=== PATIENT | male | born 1975 | race Caucasian/White ===

== ENCOUNTER 2019-12-30 22:37 | Inpatient (IN) | payer OTHER ==
[2019-12-30] MEDS ORDERED: Clindamycin/D5W 900 mg/50 ml Premix Bag ONE (23:50)
[2019-12-30] MEDS ORDERED: Ketorolac Tromethamine 30 MG/ML VIAL ONE (23:50)
[2019-12-31] MEDS ORDERED: Morphine 4 MG/ML VIAL ONE (00:38)
[2019-12-31] MEDS ORDERED: Ondansetron PF 4 MG/2 ML Vial IVP PRN ×2 (01:37→01:59)
[2019-12-31] MEDS ORDERED: Ondansetron ODT 4 MG TAB SL PRN (01:37)
[2019-12-31] MEDS ORDERED: Sodium Chloride 0.9% 1,000 ML IV SCH (01:45)
[2019-12-31 01:55] VITALS: BMI 26.9
[2019-12-31] MEDS ORDERED: Ondansetron ODT 4 MG TAB PO PRN (01:59)
[2019-12-31] MEDS: Morphine 4 MG/ML VIAL SLOW IVP PRN ×6 (02:24→22:22)
[2019-12-31] MEDS: Sodium Chloride 0.9% 1,000 ML IV SCH ×4 (02:27→22:24)
[2019-12-31 04:10] LABS: #Eosinphils 0.2 thou/uL (0.0-0.7); #Monocytes 0.8 thou/uL (0.11-0.59); #Neutrophils 5.9 thou/uL (1.40-6.50); %Basophils 0.2 % (0.0-1.0); %Eosinophils 1.9 % (0.0-10.0); %Lymphocytes 22.8 % (21.0-51.0); %Monocytes 8.7 % (0.0-10.0); %Neutrophils 66.4 % (42.0-75.0); Hemoglobin 15.2 g/dL (14.0-18.0); Mean Corpuscular HGB CONC 32.2 g/dL (32.0-36.0); Mean Corpuscular Volume 96.4 fL (78.0-98.0); Mean Platelet Volume 7.6 fL (7.4-10.4); Platelet Count 329 thou/uL (130-400); RBC Distribution Width 12.2 % (11.5-14.5)
[2019-12-31 04:28] LABS: Anion Gap 14 mmol/L (10-20); BUN (Urea Nitrogen) 16 mg/dL (8.9-20.6); Calc. Creatinine Clearance 108 mL/min (70-130); Carbon Dioxide 25 mmol/L (22-29); Chloride 108 mmol/L (98-107); Estimated GFR-MDRD 86; Glucose 99 mg/dL (70-105); Potassium 4.5 mmol/L (3.5-5.1); Sodium 142 mmol/L (136-145)
--- NOTE | 2019-12-31 07:43 | HP ---
TIME OF ASSESSMENT: 0100 hours. CHIEF COMPLAINT: Left jaw pain and swelling x3 weeks. HISTORY OF PRESENT ILLNESS: Mr. Reddy is a 44-year-old gentleman, who was brought to the ED in [place] due to complaints of increasing left lower jaw swelling and pain. The patient has a history of a jaw fracture in the past for which he had a titanium plate placed in April 2019. He apparently had a second surgery in July 2019. The patient states he has been doing well with no real limited range of motion in his jaw; however, 3 weeks ago, he states he yawned and felt a snap in the left lower jaw. Since then, he has had progressively worsening swelling and redness to left side of his jaw. He has also noted one open wound with drainage in the last few days. He has not developed any fevers or chills, but has felt generally unwell. Denies any difficulty swallowing. No difficulty with his breathing. Denies any chest pain. He otherwise feels well and is without any complaints. In the Emergency Department in [place], he underwent CT of facial bone imaging which showed extensive inflammatory changes involving the skin and subcutaneous fat in the left perimandibular facial region with inflammatory change involving the adjacent masseter muscle and parotid gland as well as mastication muscles. This was felt to be consistent with extensive infectious process. Intramuscular abscess felt to be a possibility. Surgical consultation has been recommended and the patient therefore transferred here as no beds were available at [facility]. MR imaging or bone scan suggested to exclude mandibular osteomyelitis. The patient has been started on IV antibiotics with clindamycin. He had laboratory studies done, which were notable for white count of 11.5, hemoglobin 15.7, platelets 319, granulocytes 78%. Sodium 140, potassium 4.2, BUN 14, creatinine 0.8. On arrival here, his vital signs are normal and he has got a low-grade temperature of 99. PAST MEDICAL HISTORY: General seizure disorder. PAST SURGICAL HISTORY: 1. Left jaw surgery in April 2019. 2. Right hand surgery. 3. Left forearm surgery. SOCIAL HISTORY: The patient is an inmate. FAMILY HISTORY: Noncontributory. ALLERGIES: No known drug allergies. CURRENT MEDICATIONS: Phenytoin 300 mg PO daily. PHYSICAL EXAMINATION: GENERAL: The patient appears well developed, well nourished, is in no acute distress. VITAL SIGNS: Temperature 99.1, pulse 78, blood pressure 118/72, respirations 18 , O2 saturation 96% on room air. HEENT: The patient with notable swelling to the left side of his lower face. Pupils are equal, round, and reactive to light. Sclerae icterus. Oropharynx clear, but with limited range of motion, pain in the left lower jaw. Left cheek area notable for small wound with dry blood and no active bleeding or drainage. This area is bulging, firm and tender to light palpation. Some slight tenderness with palpation of the left neck. The patient states it feels tight. No erythema extending down to the left side of his neck. LUNGS: Clear to auscultation bilaterally without wheezes, rales, or rhonchi. CARDIAC: Regular rate and rhythm without audible murmurs, rubs, or gallops. ABDOMEN: Soft, nontender, nondistended. Normoactive bowel sounds present. No guarding or rigidity. No renal angle tenderness. EXTREMITIES: No lower leg swelling or edema. Peripheral pulses are strong and equal bilaterally. SKIN: Warm and dry. INVESTIGATIONS: As mentioned above in HPI. IMPRESSION AND PLAN: Mr. Reddy is a 44-year-old gentleman, who was brought to [place] ED from detention due to increasing swelling and pain involving the left side of his jaw. He has had surgery in the past due to jaw fracture with a titanium plate placed. The patient is asking if he could have the titanium plate removed. I have explained this will be up to the oral surgeon. The patient did not have initial surgery done here. Consult has been placed to Dr. Priest. We will continue IV antibiotics and resume home medications once verified. He is on Dilantin only , which he has been taking consistently. We will check a Dilantin level. We will continue to monitor the patient overnight. GI prophylaxis: Famotidine. Code status is full. Unable to determine surrogate decision maker at this present time. Case discussed with Dr. Stewart, who agrees with plan of care as described above. Job ID: [id number] [facility]
[2019-12-31] MEDS ORDERED: Clindamycin/D5W 900 MG in Premix Bag 1 BAG IVPB SCH ×2 (08:00→22:00)
[2019-12-31] MEDS: Famotidine/PF 20 mg/2ml Vial SLOW IVP SCH ×2 (08:24→20:27)
--- NOTE | 2019-12-31 14:34 | PDOC.HOSPP ---
- Subjective Encounter Date: 12/31/19 Encounter Time: 11:40 Subjective: pt up in bed is hungry and wants to eat. He also has pain to his left jaw and left ear. - Objective Vital Signs & Weight: Vital Signs (12 hours) Temp Pulse Resp BP Pulse Ox 12/31/19 10:46 98.7 F 82 16 106/72 94 L 12/31/19 08:30 97 12/31/19 07:21 98.3 F 72 16 111/75 97 12/31/19 03:54 97.6 F 70 18 103/65 97 12/31/19 02:36 96 Weight Weight 172 lb I&O: 12/30/19 12/31/19 01/01/20 06:59 06:59 06:59 Intake Total 500 Output Total 650 Balance -150 Result Diagrams: 12/31/19 03:55 12/31/19 03:55 Hospitalist ROS - Medication Medications: Active Medications Generic Name Dose Route Start Last Admin Trade Name Freq PRN Reason Stop Dose Admin Famotidine 20 mg 12/31/19 09:00 12/31/19 08:24 Pepcid SLOW IVP 20 mg Q12HR REENA Administration Sodium Chloride 1,000 mls @ 65 mls/hr 12/31/19 02:00 12/31/19 08:28 Normal Saline 0.9% IV 1,000 mls .[id number] REENA Administration Morphine Sulfate 4 mg 12/31/19 09:50 12/31/19 14:29 Morphine SLOW IVP 4 mg Q4H PRN Administration Severe Pain (7-10) - Exam ENT - other findings: left jaw painful to touch and significant erythema to left ear. purulent Heart: negative: RRR, no murmur, no gallops, no rubs, normal peripheral pulses, irregular, diminshed peripheral pulses, murmur present, II/IV, III/IV Respiratory: negative: CTAB, no wheezes, no rales, no ronchi, normal chest expansion, no tachypnea, normal percussion, rales, rhonchi, tachypneic, wheezes Gastrointestinal: negative: soft, non-tender, non-distended, normal bowel sounds , no palpable masses, no hepatomegaly, no splenomegaly, no bruit, no guarding, no rigidity, tender to palpation, distended, diminished bowl sounds, voluntary guarding Extremities: negative: no cyanosis, no clubbing, no edema, 1+ LE edema, 2+ LE edema, clubbing Hosp A/P (1) Cellulitis of jaw, left Code(s): L03.211 - CELLULITIS OF FACE Status: Acute (2) Seizure Code(s): R56.9 - UNSPECIFIED CONVULSIONS Status: Acute - Plan will continue clindamycin and cx has been takes from his left jaw opening. significant purulent drainage noted. will continue his home meds. He states that he had seizure when he was withdrawing from xanax.
[2019-12-31] MEDS: Clindamycin/D5W 900 MG in Premix Bag 1 BAG IVPB SCH ×2 (16:50→23:47)
[2019-12-31] MEDS: Senokot S 8.6-50 MG TAB PO SCH (20:28)
[2020-01-01] MEDS: Morphine 4 MG/ML VIAL SLOW IVP PRN ×3 (03:21→15:19)
[2020-01-01] MEDS: Sodium Chloride 0.9% 1,000 ML IV SCH ×3 (06:34→23:30)
[2020-01-01] MEDS: Clindamycin/D5W 900 MG in Premix Bag 1 BAG IVPB SCH ×3 (08:29→23:30)
[2020-01-01] MEDS: Famotidine/PF 20 mg/2ml Vial SLOW IVP SCH ×2 (08:30→23:31)
[2020-01-01] MEDS: Senokot S 8.6-50 MG TAB PO SCH ×2 (08:31→23:31)
[2020-01-01] MEDS ORDERED: Ondansetron PF 4 MG/2 ML Vial ONE (09:46)
[2020-01-01] MEDS ORDERED: EPHEDRINE 25 MG/5 ML SYRINGE ONE (09:46)
[2020-01-01] MEDS ORDERED: Ketorolac Tromethamine 30 MG/ML VIAL ONE (09:46)
[2020-01-01] MEDS ORDERED: Dexamethasone 20 MG/5 ML VIAL ONE (09:46)
[2020-01-01] MEDS ORDERED: PROPOFOL 200 MG/20 ML VIAL ONE (09:46)
[2020-01-01] MEDS ORDERED: Rocuronium Bromide 10 MG/ML (10ML VIAL) ONE (09:46)
[2020-01-01] MEDS ORDERED: PHENYLEPHRINE-NS 100 MCG/ML 10 ML SYRINGE ONE (09:46)
[2020-01-01] MEDS ORDERED: Glycopyrrolate 0.2 MG/ML 5 ML SYRINGE ONE (09:46)
[2020-01-01] MEDS ORDERED: Lidocaine 1% PF 5 ML VIAL ONE (09:46)
[2020-01-01] MEDS: Fentanyl 100 MCG/2 ML VIAL SLOW IVP PRN (11:43)
--- NOTE | 2020-01-01 13:48 | PDOC.HOSPP ---
- Subjective Encounter Date: 01/01/20 Encounter Time: 11:30 Subjective: pt up in bed awaiting surgery. - Objective Vital Signs & Weight: Vital Signs (12 hours) Temp Pulse Resp BP Pulse Ox 01/01/20 11:51 98.3 F 64 14 116/77 97 01/01/20 10:42 98.7 F 72 16 119/80 98 01/01/20 07:26 98.0 F 67 16 114/80 96 01/01/20 03:14 98.3 F 66 18 114/80 96 Weight Weight 172 lb I&O: 12/31/19 01/01/20 01/02/20 06:59 06:59 06:59 Intake Total 500 Output Total 650 Balance -150 Result Diagrams: 12/31/19 03:55 12/31/19 03:55 Hospitalist ROS - Review of Systems Cardiovascular: denies: chest pain, palpitations, orthopnea, paroxysmal noc. dyspnea, edema, light headedness, other Gastrointestinal: denies: nausea, vomiting, abdominal pain, diarrhea, constipation, melena, hematochezia, other Genitourinary: denies: dysuria, frequency, incontinence, hematuria, retention, other - Medication Medications: Active Medications Generic Name Dose Route Start Last Admin Trade Name Freq PRN Reason Stop Dose Admin Famotidine 20 mg 12/31/19 09:00 01/01/20 08:30 Pepcid SLOW IVP 20 mg Q12HR REENA Administration Fentanyl 50 mcg 12/31/19 09:49 01/01/20 11:43 Sublimaze SLOW IVP 50 mcg Q3H PRN Administration Pain Sodium Chloride 1,000 mls @ 100 mls/hr 12/31/19 15:45 01/01/20 08:29 Normal Saline 0.9% IV 1,000 mls .Q10H REENA Administration Clindamycin Phosphate/Dextrose 50 mls @ 100 mls/hr 12/31/19 16:00 01/01/20 08 :29 900 mg/ Device IVPB 50 mls 0800,1600,2359 REENA Administration Morphine Sulfate 4 mg 12/31/19 09:50 01/01/20 08:31 Morphine SLOW IVP 4 mg Q4H PRN Administration Severe Pain (7-10) Phenytoin Sodium 300 mg 01/01/20 09:00 01/01/20 08:30 Dilantin Er PO 300 mg DAILY REENA Administration Senna/Docusate Sodium 1 tab 12/31/19 21:00 01/01/20 08:31 Senokot S PO Not Given BID REENA - Exam Heart: negative: RRR, no murmur, no gallops, no rubs, normal peripheral pulses, irregular, diminshed peripheral pulses, murmur present, II/IV, III/IV Respiratory: negative: CTAB, no wheezes, no rales, no ronchi, normal chest expansion, no tachypnea, normal percussion, rales, rhonchi, tachypneic, wheezes Gastrointestinal: negative: soft, non-tender, non-distended, normal bowel sounds , no palpable masses, no hepatomegaly, no splenomegaly, no bruit, no guarding, no rigidity, tender to palpation, distended, diminished bowl sounds, voluntary guarding Hosp A/P (1) Cellulitis of jaw, left Code(s): L03.211 - CELLULITIS OF FACE Status: Acute (2) Seizure Code(s): R56.9 - UNSPECIFIED CONVULSIONS Status: Acute - Plan will continue clindamycin and cx has been takes from his left jaw opening. significant purulent drainage noted. will continue his home meds. He states that he had seizure when he was withdrawing from xanax. 01/01 pt's erythema has improved will monitor, he is going for surgery today. May require jail abx.
[2020-01-01] MEDS ORDERED: Fentanyl 100 MCG/2 ML VIAL ONE ×4 (18:01→21:29)
[2020-01-01] MEDS ORDERED: Chlorhexidine Gluconate 15 ML UDCUP SSP ONE (18:25)
[2020-01-01] MEDS ORDERED: Sodium Chloride 0.9% 10 ML ONE (18:25)
[2020-01-01] MEDS ORDERED: Bacitracin Zinc Ointment 30 gm TUBE ONE (18:25)
[2020-01-01] MEDS ORDERED: Lidocaine 1% w/Epinephrine 1:100K 20 ML VIAL ONE (18:25)
[2020-01-01] MEDS ORDERED: Midazolam HCl 2 mg/2 ml Vial ONE (18:28)
[2020-01-01] MEDS ORDERED: Promethazine HCl 25 MG/ML VIAL IM PRN (22:07)
[2020-01-01] MEDS ORDERED: Ondansetron HCl/PF 4 MG/2 ML Vial IVP PRN (22:07)
[2020-01-01] MEDS ORDERED: Promethazine HCl 25 MG/ML VIAL SLOW IVP PRN (22:07)
[2020-01-02] MEDS: Morphine 4 MG/ML VIAL SLOW IVP PRN ×2 (00:14→08:34)
[2020-01-02] MEDS: Fentanyl 100 MCG/2 ML VIAL SLOW IVP PRN (04:19)
[2020-01-02] MEDS: Sodium Chloride 0.9% 1,000 ML IV SCH ×3 (08:31→23:55)
[2020-01-02] MEDS: Clindamycin/D5W 900 MG in Premix Bag 1 BAG IVPB SCH ×3 (08:32→23:54)
[2020-01-02] MEDS: Chlorhexidine Gluconate 15 ML UDCUP SSP SCH ×2 (08:33→20:03)
[2020-01-02] MEDS: Senokot S 8.6-50 MG TAB PO SCH ×2 (08:34→20:04)
[2020-01-02] MEDS: Famotidine/PF 20 mg/2ml Vial SLOW IVP SCH ×2 (08:34→20:04)
--- NOTE | 2020-01-02 08:47 | CT ---
CT of the facial bones: 01/01/2020 COMPARISON: 12/30/2019 TECHNIQUE: Axial CT imaging at 2.5 mm intervals through the facial bones without contrast. Coronal an d sagittal reformatted imaging obtained. FINDINGS: Evaluation of the face is limited without IV contrast media. Limited assessment of the imaged brain parenchyma appears grossly unremarkable. There has been interval I&D in the left facial region with packing material within the subcutaneous f at extending into the masseter muscle on the left. Postoperative hardware within the mandible on the left present on the prior examination has been removed. There is persistent inflammatory thickeni ng of the platysma on the left with extensive left lateral facial skin thickening as well as enlargement and hypodensity of the left masseter muscle consistent with myositis/masseter muscle absc ess. There is associated mild inflammatory induration of the retroantral fat on the left. There is mild enlargement and edematous change within the pterygoid musculature on the left suggesting edema o n the basis of inflammation/infection. The submandibular glands and the right parotid gland appear unremarkable. There is enlargement and ed ematous change involving the left parotid gland suggesting secondary parotiditis. Imaged paranasal sinuses/mastoid air cells are well-aerated. No displaced calvarial fracture. No disc rete bone destruction. IMPRESSION: Status post I&D in the left facial region with packing material within the subcutaneous f at and the masseter muscle on the left. Interval removal of left mandibular hardware. Residual inflammatory/infectious change is seen involving the associated skin and subcutaneous fat in the left lateral facial region and left perimandibular region with involvement of the retroantral fat, information tech space/pterygoid musculature, and parotid gland on the left.
--- NOTE | 2020-01-02 13:42 | PDOC.HOSPP ---
- Subjective Encounter Date: 01/02/20 Encounter Time: 10:30 Subjective: pt up in bed no complains. Feels well. - Objective Vital Signs & Weight: Vital Signs (12 hours) Temp Pulse Resp BP Pulse Ox 01/02/20 11:45 98.3 F 78 14 111/71 97 01/02/20 07:09 97.8 F 73 14 109/77 98 01/02/20 04:00 98.8 F 73 16 122/71 92 L Weight Weight 172 lb I&O: 01/01/20 01/02/20 01/03/20 06:59 06:59 06:59 Intake Total 900 Balance 900 Result Diagrams: 12/31/19 03:55 12/31/19 03:55 Hospitalist ROS - Review of Systems Cardiovascular: denies: chest pain, palpitations, orthopnea, paroxysmal noc. dyspnea, edema, light headedness, other Gastrointestinal: denies: nausea, vomiting, abdominal pain, diarrhea, constipation, melena, hematochezia, other Genitourinary: denies: dysuria, frequency, incontinence, hematuria, retention, other - Medication Medications: Active Medications Generic Name Dose Route Start Last Admin Trade Name Freq PRN Reason Stop Dose Admin Chlorhexidine Gluconate 15 ml 01/02/20 09:00 01/02/20 08:33 Chlorhexidine Gluconate SSP 15 ml BID REENA Administration Famotidine 20 mg 12/31/19 09:00 01/02/20 08:34 Pepcid SLOW IVP 20 mg Q12HR REENA Administration Sodium Chloride 1,000 mls @ 100 mls/hr 12/31/19 15:45 01/02/20 08:31 Normal Saline 0.9% IV 1,000 mls .Q10H REENA Administration Clindamycin Phosphate/Dextrose 50 mls @ 100 mls/hr 12/31/19 16:00 01/02/20 08 :32 900 mg/ Device IVPB 50 mls 0800,1600,2359 REENA Administration Morphine Sulfate 4 mg 12/31/19 09:50 01/02/20 08:34 Morphine SLOW IVP 4 mg Q4H PRN Administration Severe Pain (7-10) Phenytoin Sodium 300 mg 01/01/20 09:00 01/02/20 08:34 Dilantin Er PO 300 mg DAILY REENA Administration Senna/Docusate Sodium 1 tab 12/31/19 21:00 01/02/20 08:34 Senokot S PO 1 tab BID REENA Administration - Exam Heart: negative: RRR, no murmur, no gallops, no rubs, normal peripheral pulses, irregular, diminshed peripheral pulses, murmur present, II/IV, III/IV Respiratory: negative: CTAB, no wheezes, no rales, no ronchi, normal chest expansion, no tachypnea, normal percussion, rales, rhonchi, tachypneic, wheezes Gastrointestinal: negative: soft, non-tender, non-distended, normal bowel sounds , no palpable masses, no hepatomegaly, no splenomegaly, no bruit, no guarding, no rigidity, tender to palpation, distended, diminished bowl sounds, voluntary guarding Extremities: negative: no cyanosis, no clubbing, no edema, 1+ LE edema, 2+ LE edema, clubbing Hosp A/P (1) Cellulitis of jaw, left Code(s): L03.211 - CELLULITIS OF FACE Status: Acute (2) Seizure Code(s): R56.9 - UNSPECIFIED CONVULSIONS Status: Acute - Plan will continue clindamycin and cx has been takes from his left jaw opening. significant purulent drainage noted. will continue his home meds. He states that he had seizure when he was withdrawing from xanax. 01/01 pt's erythema has improved will monitor, he is going for surgery today. May require senior care abx. 01/02 s/p I&D will continue current abx for now. will switch iv pain meds to oral.
[2020-01-02] MEDS: HYDROcodone/Acetaminophen 7.5/325 mg Tablet PO PRN ×2 (13:58→20:04)
[2020-01-02 21:38] LABS: Bacteria/HPF None Seen HPF (None Seen); Bilirubin Negative (Negative); Blood, Urine Negative (Negative); Clarity Clear (Clear); Glucose, Urine (Dipstick) Normal (Negative); Leukocyte Negative Leu/uL (Negative); Nitrite Negative (Negative); Protein, Urine (Dipstick) Negative (Neg-Trace); RBC/HPF 0-3 HPF (0-3); Squamous Epithelial None Seen HPF (0-3); Urobilinogen Normal mg/dL (Less than 2); WBC/HPF 0-3 HPF (0-3)
[2020-01-02 21:39] LABS: Urine Culture Reflex No No
--- NOTE | 2020-01-02 22:03 | PRG ---
DATE OF SERVICE: SUBJECTIVE: The patient is postoperative day #1, status post I and D of left facial abscess and removal of left mandibular hardware. The patient is doing well. He is voiding, ambulating, and tolerating p.o. He has had wound care changes left mandibular dressing. His opening is good. His wounds are clean and intact. OBJECTIVE: VITAL SIGNS: Have been stable. His T-max is 98.8, current pulse 78, respiration 14, he is saturating 97% on room air, and his blood pressure is 111/71. HEENT: His occlusion is good. His opening is good. Minimal purulent drainage coming from the left cheek wound. There is a gauze packing strip in the wound that has been changed and gauze bandage over this. ASSESSMENT: The patient is doing well postoperative day #1, status post incision and drainage of left mandible face as well as removal of left mandibular hardware. PLAN: I feel the patient is ready for discharge. The patient is to follow up in our clinic in one week. Please give discharge antibiotics of clindamycin 300 mg t.i.d. for one week as well as Peridex 15 mL swish and spit t.i.d. for one week. I would also like the patient on a soft diet, nothing harder than mashed potatoes. Job ID: [id number]
[2020-01-03] MEDS: HYDROcodone/Acetaminophen 7.5/325 mg Tablet PO PRN ×3 (04:38→18:10)
[2020-01-03] MEDS: Sodium Chloride 0.9% 1,000 ML IV SCH (08:03)
[2020-01-03] MEDS: Clindamycin/D5W 900 MG in Premix Bag 1 BAG IVPB SCH ×2 (08:25→14:22)
[2020-01-03] MEDS: Chlorhexidine Gluconate 15 ML UDCUP SSP SCH (08:27)
[2020-01-03] MEDS: Famotidine/PF 20 mg/2ml Vial SLOW IVP SCH (08:27)
[2020-01-03] MEDS: Acetaminophen/Codeine 30-300mg Tablet PO PRN ×2 (08:28→16:17)
[2020-01-03] MEDS: Senokot S 8.6-50 MG TAB PO SCH (08:28)
[2020-01-03] MEDS ORDERED: Saccharomyces boulardii 250 MG CAP PO SCH (09:00)
[2020-01-03 15:40] VITALS: TEMP 98.1
[2020-01-03 16:25] VITALS: BP 111/73
--- NOTE | 2020-01-03 21:01 | DIS ---
DATE OF ADMISSION: 12/31/2019 DATE OF DISCHARGE: 01/03/2020 DISCHARGE DIAGNOSES: 1. Cellulitis of the left jaw. 2. History of seizures. HOSPITAL COURSE: The patient is a 44-year-old male with a history of seizures. The patient stated that he was on Xanax and most likely probably from withdrawal of Xanax, started having seizures and so he was put on Dilantin for that. He came into the hospital with complaints of pain, swelling to the left jaw x3 weeks. He does have a history of jaw fracture and has had hardware back in 2019. At this time, oral maxillofacial surgeon was consulted. The patient was put on broad-spectrum antibiotics and had a facial CT. The CT was done after the I and D. The CT indicated interval removal of the left mandibular hardware, residual inflammatory infection changes seen involving the associated skin and subcutaneous fat in the left lateral facial region and left perimandibular region with involvement of the retroantral fat, casino attendant space, pterygoid musculature, and the parotid gland to the left. The patient did have an I and D, cultures were sent, they are still pending. However, per the surgeon's note, the patient is okay to be discharged. He will follow up with them in a week. I have notified this to the patient and written discharge instructions. He will be on clindamycin 300 mg t.i.d. and also on Peridex 15 mL wash, swish and spit for about a week. Also, soft diet has been recommended. MEDICATIONS: The patient's home medications are: 1. Peridex 15 mL t.i.d. 2. Clindamycin 300 q.8 for a week. 3. Florastor. 4. Phenytoin. I have also given him Tylenol No.3. PHYSICAL EXAMINATION: VITAL SIGNS: Temperature 98.1, pulse 87, respirations 16, 94%, blood pressure 111/73. GENERAL: He is awake, alert, and oriented x3. Does not appear in distress. CV: S1 and S2 present. No murmurs, rubs, or gallops. DISCHARGE PLAN: Again, the patient will be discharged home. He will follow up with the surgeon in one week. Job ID: [id number]
--- NOTE | 2020-01-05 04:15 | PQF ---
ERIN MURPHY KARISHMA [id number] SURG A- [id number] CLINICAL DOCUMENTATION CLARIFICATION FORM: POST DISCHARGE Addendum to original discharge summary date: ____ Late entry note date: __ DATE: 01/05/2020 ATTN: Greer Connell Please exercise your independent, professional judgment in responding to the clarification form. Clinical indicators are provided on the bottom of this form for your review Please check appropriate box(s): [ ] Cellulitis of Jaw is a complication of Internal fixation device [ ] Cellulitis of Jaw is not a complication of Internal fixation device [ ] Other diagnosis [ x ] Unable to determine CLINICAL INDICATORS - SIGNS / SYMPTOMS / LABS ED Notes p1 12/30 Patient was transferred for facial cellulitis. Patient states he has had increasing pain and swelling to the left jaw....History of surgical repair of mandible fracture on that side with hardware in place ED Notes p4 12/30 soft tissue infection involving deep structures of left face H&P p3 12/31 Natividad PA-C Cellulitis of jaw left H&P p1 12/31 Natividad PA-C complaints of increasing left lower jaw swelling and pain H&P p1 12/31 Natividad PA-C The patient states he has been doing well with no real limited range of motion in his jaw, however, 3 weeks ago, he states he yawned and felt a snap in the left lower jaw H&P p1 12/31 Natividad ODELL-C This was felt to be consistent with extensive infectious process RISK FACTORS H&P p1 12/31 History of Jaw Fracture H&P p1 12/31 s/p Jaw Titanium plate H&P p1 12/31 History of general seizure disorder TREATMENT: I&D with removal of hardware 01/01 by Tyler Soto Jan 11 IV Clindamycin 50mls Jan 11 Toradol 30mg JAN 11 IVF 1L Jan 11 IV Morphine 4mg Jan 11 Bac[address]racin [id number] ordered 01/01 DS p1 01/03 I&D of face wound DS p1 01/03 Wound culture (This form is maintained as a part of the permanent medical record) 2014 [employer] All Rights Reserved [email or web address]
--- NOTE | 2020-01-05 10:55 | OP ---
DATE OF PROCEDURE: 01/01/2020 PREOPERATIVE DIAGNOSES: 1. Infected left mandibular strut plate. 2. Left buccal space abscess. 3. Retained maxillary arch bar. POSTOPERATIVE DIAGNOSES: 1. Infected left mandibular strut plate. 2. Left buccal space abscess. 3. Retained maxillary arch bar. PROCEDURES PERFORMED: 1. Removal of left mandibular strut plate. 2. Transcervical incision and drainage of left buccal space abscess. 3. Removal of maxillary arch bar. INDICATIONS: This is a 44-year-old male, status post repair of bilateral mandible fractures in April and July 2019, presenting with several week history of increasing left cheek swelling and pain, which appears to be secondary to infected mandibular hardware of the left mandible. The patient also presents with retained maxillary arch bar from his previous procedure as well. The patient is brought to the operating room at this time for removal of the infected hardware, incision and drainage of the associated abscess of the cheek and removal of the retained maxillary hardware as well. PROCEDURE IN DETAIL: The patient was identified in the preoperative holding area and all questions were answered. The patient was then transferred to the operating room and transferred to the operating room table in supine position. The patient was subsequently induced with a general anesthetic and intubated by the anesthesia service without complication. A surgical time-out was performed. The patient's face and neck were prepped and draped in sterile manner. The oral cavity was suctioned free of secretions and debris and a throat pack was placed. Local anesthetic was delivered to the left mandible region and the maxilla, and the attention was then turned externally to the left cheek region. A 15 blade was used to enlarge the wound that was already present on the left face and hemostats were then used to gently bluntly dissect this wound open further in order to enter the left cheek abscess. Upon entry into the left cheek abscess, purulence was obtained and swabs were taken and sent for culture and sensitivity. This cheek abscess was fully opened and decompressed at this time and irrigated copiously with bacitracin-infused normal saline. Attention was turned back into the oral cavity. The maxillary arch bar was removed in normal fashion by loosening the circumdental wires, cutting the circumdental wires, and removing the circumdental wires. After removal of all circumdental wires, the arch bar itself was then removed. Attention was then turned back to the left posterior mandible intraorally and a vestibular incision was begun using a Bovie cautery. This approach was then deepened in layers using Bovie cautery until a periosteum was reached, at which time, the periosteum was incised along the full length of the incision. At this time, a subperiosteal dissection ensued to expose the entire lateral aspect of the posterior left mandible. It should be noted, there was heavy inflammatory and granulation type tissue throughout this area extending directly to the level of the left mandibular strut plate. It should also be noted that upon inspection, it appeared that there was good bony union across the area of the presumed previous fracture. At this time, the inflammatory tissue was divided and the dissection continued to fully expose the plate, although due to the heavy granulation tissue in resorption of the mandible underlying the plate. Access to the plate was fairly difficult. The cheek wound that had been used to decompress and drain the abscess was then used to insert a transcutaneous drill guide for access to the screws. A cheek retractor was then attached to this drill guide for assistance in retraction. This transcutaneous drill guide and cheek retractor was then used to access all the screws of the strut plate. The screws were backed out and removed and after they were removed, the plate itself was then extricated from the intraoral wound. After removal of the plate, the granulation tissue was again debrided and the mandible itself was cleaned and debrided as well, and again it was noted that there appeared to be a union throughout the entirety of the left posterior mandible. This wound was then copiously irrigated with bacitracin infused normal saline and an intraoral closure was then obtained using 4-0 chromic gut suture in a combination of a running and interrupted fashion. The oral cavity itself was again irrigated copiously. The dentition was brushed both in the mandible and the maxilla and the oral cavity was then suctioned free of secretions and debris and the throat pack was removed. Attention was turned back to the external cheek wound and it was irrigated once more with bacitracin infused saline and then it was packed with iodoform packing gauze and a gauze and tape wound was then placed over the left cheek. The patient was then turned over to the anesthesia service for emergence and extubation, which ensued without complication. INTRAVENOUS FLUIDS: Please see anesthetic record. ESTIMATED BLOOD LOSS: 15 mL. DRAINS: Medicated packing gauze was placed to the left cheek wound. IMPLANTS: None. SPECIMENS: Purulence from the left buccal space. FINDINGS: Significant infection of the left cheek and left posterior mandible secondary to failing and infected mandibular hardware. A bony union across the right and left mandibular fractures. A retained maxillary arch bar, which was subsequently removed. COMPLICATIONS: None. DISPOSITION: The patient was extubated and transferred to the recovery room in good condition. Job ID: [id number] [facility]
--- NOTE | 2020-03-14 21:09 | CON ---
DATE OF CONSULTATION: 12/31/2019 Consulted by the Hospitalist Service. HISTORY OF PRESENT ILLNESS: A 44-year-old male, who is an inmate in [place] , who was first evaluated in the [place] [facility] due to left lower jaw swelling and pain. The patient has a somewhat unclear history of a jaw fracture around the April 2019 timeframe, which was originally repaired in [place]. He had some sort of complication or problem that resulted in a second surgery around the July time frame. He stated that he has been doing well without any real issues until approximately 3 weeks prior to his current presentation. At that time, he reports yawning and feeling some sort of snap in the left lower jaw region. Since the time of that episode, the patient reports continually worsening swelling and redness to the left cheek region. Prior to this onset of swelling and discomfort over the past 3 weeks, the patient states that prior to this time he was eating without difficulty without any pain or noted problems. The patient denies any trismus, dysphagia, or odynophagia. The patient reports a recent opening of a wound on the left cheek with resultant drainage of purulent type material. PAST MEDICAL HISTORY: General seizure disorder. PAST SURGICAL HISTORY: 1. Surgery to repair bilateral mandibular fractures in April 2019 and in July 2019. 2. Right hand surgery. 3. Left forearm surgery. SOCIAL HISTORY: The patient is an inmate in custodial in [place]. FAMILY HISTORY: Noncontributory. ALLERGIES: NO KNOWN DRUG ALLERGIES. CURRENT MEDICATIONS: Phenytoin. REVIEW OF SYSTEMS: Negative aside from what is mentioned in the history of present illness. PHYSICAL EXAMINATION: VITAL SIGNS: Temperature 99.1, heart rate 78, blood pressure 118/72, respiratory rate 18, 99% oxygen on room air. GENERAL: Alert and oriented x3. No apparent distress. HEAD AND NECK EXAM: No noted abnormalities of the scalp or head region. On ocular exam, the patient has no signs of recent ocular trauma or abnormalities. Extraocular movements are intact. Pupils are equally round and reactive to light and accommodation. No periorbital edema or ecchymosis. NASAL EXAM: Without abnormality. On the facial exam, the patient has significant left cheek swelling with a wound noted over the center aspect of the swelling. No rico purulence, but significant erythema and edema in the region. On intraoral exam, the patient is noted to have a retained maxillary arch bar. On evaluation of his occlusion, it appears to be well intercuspal bilaterally and in the desired position. The right mandible is without any signs of abnormality. Any surgical wounds on that side have healed without issue, and there is no erythema or edema. Additionally, significant pressure was placed over the right mandible across the area of presumed fracture based on the CT scan. There were no signs of mobility or discomfort upon doing this. The left posterior mandible and the vestibular region shows an area of erythema and edema and what appears to be a likely fistulous tract down to the area of the hardware in this region. Floor of mouth is soft and oropharynx is within normal. Neck exam is within normal limits. Ear exam is within normal limits. LABORATORY STUDIES: White count 9, hemoglobin 15, platelets 329. Only abnormality on the chemistry panel is a chloride of 108. CT scan of the face and neck shows retained arch bar in the maxillary arch. It also shows what appears to be an area of a healing fracture in the right mandibular body region. The bone across this presumed fracture site does not appear to be ideal in morphology or anatomy, and the radiologist draws some concern about whether or not this represents an area of osteomyelitis, but correlating with the physical exam , it appears that this is an area of bony consolidation secondary to a previous fracture. In the left mandible, the patient has retained hardware in the right angle region, which appears to be a strut plate and multiple screws on this plate that could have osteolytic process occurring with concern for infection. Directly overlying this plate, and extending into the left cheek the patient has significant cellulitic changes in the soft tissues, consistent with the physical exam. ASSESSMENT: 1. Status post repair of bilateral mandible fractures with right body fracture appearing to be healed, based on clinical and radiographic evaluation and the left mandibular hardware appearing to be compromised and infected. 2. Retained maxillary arch bar. PLAN: 1. Continue the patient on current IV antibiotics. 2. Add Peridex oral rinses b.i.d. 3. Plan will be to take the patient to the operating room tomorrow for incision and drainage of the left cheek abscess, removal of the left mandibular strut plate, and removal of his maxillary arch bar. 4. The patient should be kept n.p.o. after midnight. 5. Consent obtained. Job ID: [id number] [facility]
== END 2020-01-03 19:25 | DRG 496 ==
LOC: ERS 22:37 → EEVIPCON 22:37 → SURG A 12-31 00:17
PROVIDERS: ADMIT Internal Medicine Sleep Medicine; ATTEND Internal Medicine
PROC: 0NPW04Z Removal of Internal Fixation Device from Facial Bone, Open Approach (ICD-10-PCS; principal; 2020-01-01)
PROC: 0J910ZZ Drainage of Face Subcutaneous Tissue and Fascia, Open Approach (ICD-10-PCS; 2020-01-01)
DX: T84.69XA Infection and inflammatory reaction due to internal fixation device of other site, initial encounter (principal); L03.211 Cellulitis of face; G40.909 Epilepsy, unspecified, not intractable, without status epilepticus; Z79.899 Other long term (current) drug therapy; Y83.1 Surgical operation with implant of artificial internal device as the cause of abnormal reaction of the patient, or of later complication, without mention of misadventure at the time of the procedure
CPT/HCPCS: 36415; 70486; 80048; 80185; 81001; 85025; 87070; 87077; 87205; 96365; 96375; J1100; J1885; J2001; J2250; J2270; J2405; J2704; J3010; J3490; S0028